=== PATIENT | female | born 1970 | race African-American/Black ===

== ENCOUNTER 2016-08-19 09:41 | Emergency (ER) | payer BC ==
[2016-08-19 09:46] VITALS: BP 128/70
[2016-08-19] MEDS ORDERED: ONDANSETRON 4 MG TAB.RAPDIS PO ONE (10:37)
--- NOTE | 2016-08-19 10:38 | ER Document Report ---
ED Medical Screen (RME) - General Chief Complaint: Dizziness Stated Complaint: DIZZY/VOMITING Mode of Arrival: Ambulatory Information source: Patient Notes: This is a 45-year-old female who presents with 2 days of nausea and vomiting and inability to tolerate po. She denies any fevers or chills. She has not had diarrhea. Her last bowel movement was yesterday morning. Last meal was yesterday"s breakfast. No known sick contacts. I have greeted and performed a rapid initial assessment of this patient. A comprehensive ED assessment and evaluation of the patient, analysis of test results and completion of the medical decision making process will be conducted by additional ED providers. TRAVEL OUTSIDE OF THE [place] IN LAST 30 DAYS: No - Related Data Allergies/Adverse Reactions: No Known Allergies Allergy (Verified 08/19/16 10:35) Past Medical History Renal/ Medical History: Denies: Hx Peritoneal Dialysis Physical Exam - Vital signs Vitals: Temp Pulse Resp BP Pulse Ox 98 F 72 18 128/70 H 99 08/19/16 09:43 08/19/16 09:43 08/19/16 09:43 08/19/16 09:43 08/19/16 09:43 Course - Vital Signs Vital signs: Temp Pulse Resp BP Pulse Ox 98.0 F 64 16 128/70 H 97 08/19/16 17:07 08/19/16 17:07 08/19/16 17:07 08/19/16 09:43 08/19/16 17:07 - Laboratory Result Diagrams: 08/19/16 10:45 08/19/16 10:45 Laboratory results interpreted by me: 08/19/16 08/19/16 08/19/16 10:45 10:45 10:45 Hgb 16.0 H Hct 48.1 H Calcium 10.5 H Urine Protein 30 H Urine Urobilinogen 4.0 H Doctor's Discharge - Discharge Clinical Impression: Vertigo, Nausea & vomiting Condition: Stable Disposition: HOME, SELF-CARE Instructions: Antinausea Medication ([facility]), Intravenous (IV) Fluids ([facility]), Meclizine ([facility]), Vertigo ([facility]), Vomiting ([facility]) Additional Instructions: Return immediately for any new or worsening symptoms Followup with your primary care provider, call tomorrow to make a followup appointment Prescriptions: Meclizine HCl [Antivert 25 mg Tablet] 25 mg PO ASDIR PRN #20 tablet PRN Reason: Ondansetron HCl [Zofran 4 mg Tablet] 1 - 2 tab PO Q6 PRN #15 tablet PRN Reason: Forms: Return to Work Referrals: [facility] [Provider Group] - Follow up as needed
[2016-08-19 11:07] LABS: ABSOLUTE EOSINOPHILS # (AUTO) 0.1 10^3/uL (0.0-0.6); ABSOLUTE LYMPHOCYTES (AUTO) 1.5 10^3/uL (0.5-4.7); ABSOLUTE MONOCYTES (AUTO) 0.3 10^3/uL (0.1-1.4); ABSOLUTE NEUT (AUTO) 4.2 10^3/uL (1.7-8.2); BASOPHILS % (AUTO) 0.7 % (0-2); EOSINOPHILS % (AUTO) 2.1 % (0-6); HEMATOCRIT 48.1 % (36.0-47.0); HGB HCT DIFFERENCE -0.1; LYMPHOCYTES % (AUTO) 24.5 % (13-45); MEAN CORPUSCULAR HEMOGLOBIN 30.5 pg (27.0-33.4); MEAN CORPUSCULAR HGB CONC 33.3 g/dL (32.0-36.0); MEAN CORPUSCULAR VOLUME 92 fl (80-97); MONOCYTES % (AUTO) 4.7 % (3-13); RED BLOOD COUNT 5.24 10^6/uL (3.72-5.28); RED CELL DISTRIBUTION WIDTH 13.5 % (11.5-14.0); WHITE BLOOD COUNT 6.2 10^3/uL (4.0-10.5)
[2016-08-19 11:18] LABS: APPEARANCE,URINE CLOUDY; BILIRUBIN,URINE NEGATIVE (NEGATIVE); GLUCOSE, URINE NEGATIVE (NEGATIVE); KETONES,URINE NEGATIVE (NEGATIVE); LEUKOCYTE ESTERASE,URINE NEGATIVE (NEGATIVE); NITRITE,URINE NEGATIVE (NEGATIVE); PROTEIN,URINE 30 mg/dL (NEGATIVE); URINE SPECIFIC GRAVITY 1.026
[2016-08-19 11:27] LABS: ALANINE AMINOTRANSFERASE 26 U/L (9-52); ALBUMIN 4.9 g/dL (3.5-5.0); ALKALINE PHOSPHATASE 82 U/L (38-126); ANION GAP 15 (5-19); ASPARTATE AMINO TRANSFERASE 19 U/L (14-36); BILIRUBIN,DIRECT 0.1 mg/dL (0.0-0.4); BLOOD UREA NITROGEN 9 mg/dL (7-20); CALCIUM 10.5 mg/dL (8.4-10.2); CARBON DIOXIDE 27 mmol/L (22-30); CHLORIDE 102 mmol/L (98-107); CREATININE RESULT 0.68 mg/dL (0.52-1.25); GLUCOSE 98 mg/dL (75-110); LIPASE 33.6 U/L (23-300); POTASSIUM 4.4 mmol/L (3.6-5.0); SODIUM 143.9 mmol/L (137-145); TOTAL PROTEIN 8.1 g/dL (6.3-8.2)
[2016-08-19] MEDS ORDERED: NORMAL SALINE 1000 ML 1,000 ML IV ONE (12:12)
[2016-08-19] MEDS ORDERED: MECLIZINE HCL 25 MG TABLET PO ONE (12:13)
[2016-08-19] MEDS ORDERED: ONDANSETRON HCL INJ/PF 4 MG/2 ML SDV IV ONE (12:13)
--- NOTE | 2016-08-19 12:15 | ER Document Report ---
ED Dizziness/Weakness - General Chief Complaint: Dizziness Stated Complaint: DIZZY/VOMITING Mode of Arrival: Ambulatory Information source: Patient Notes: Patient presents complaining of 2 day history of dizziness in which she describes as the room spinning around, nausea and vomiting. Patient states she' s vomited 3 times today. Patient denies any fever or diarrhea. 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 TRAVEL OUTSIDE OF THE [place] IN LAST 30 DAYS: No - HPI Patient complains to provider of: Vertigo Onset: Yesterday Onset/Duration: Persistent Quality of pain: No pain Pain Level: Denies Context: Vertigo Associated symptoms: Nausea, Vertigo, Vomiting. denies: Chest pain, Confused, Diarrhea, Headache, Short of breath Exacerbated by: Change in position, Movement of head Baseline gait: Walks w/o assistance - Related Data Allergies/Adverse Reactions: No Known Allergies Allergy (Verified 08/19/16 10:35) Past Medical History - General Information source: Patient - Social History Smoking Status: Current Every Day Smoker Frequency of alcohol use: Occasional Drug Abuse: None Occupation: [employer] Lives with: Alone Family History: Reviewed & Not Pertinent Renal/ Medical History: Denies: Hx Peritoneal Dialysis Psychiatric Medical History: Reports: Hx Depression Past Surgical History: Reports: Other - 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 denies: Fever EENT: Vertigo Cardiovascular: No symptoms reported. denies: Chest pain, Syncope Respiratory: No symptoms reported. denies: Cough, Short of breath Gastrointestinal: Nausea, Vomiting. denies: Abdominal pain Genitourinary: No symptoms reported Female Genitourinary: No symptoms reported Musculoskeletal: No symptoms reported Skin: No symptoms reported Hematologic/Lymphatic: No symptoms reported Neurological/Psychological: No symptoms reported. denies: Headaches Physical Exam - Vital signs Vitals: Temp Pulse Resp BP Pulse Ox 98 F 72 18 128/70 H 99 08/19/16 09:43 08/19/16 09:43 08/19/16 09:43 08/19/16 09:43 08/19/16 09:43 - General General appearance: Appears well, Alert In distress: None - HEENT Head: Normocephalic, Atraumatic Eyes: Other Extraocular movements intact: Yes Eyelashes: Normal Pupils: PERRL Ears: Normal External canal: Normal Tympanic membrane: Normal. No: Bulging, Hemotympanum, Injected, Serous effusion Nasal: Normal Mouth/Lips: Normal Mucous membranes: Normal Pharynx: Normal. No: Tonsillar hypertrophy Neck: Normal, Supple. No: Lymphadenopathy, Meningismus - Respiratory Respiratory status: No respiratory distress Chest status: Nontender Breath sounds: Normal. No: Rales, Rhonchi, Stridor, Wheezing Chest palpation: Normal - Cardiovascular Rhythm: Regular Heart sounds: S1 appreciated, S2 appreciated - Back Back: Normal, Nontender. No: CVA tenderness, Vertebra tenderness - Extremities General upper extremity: Normal inspection, Normal strength General lower extremity: Normal inspection, Normal strength - Neurological Neuro grossly intact: Yes Cognition: Normal [place] Coma Scale Eye Opening: Spontaneous Cassie Coma Scale Verbal: Oriented Cassie Coma Scale Motor: Obeys Commands Cassie Coma Scale Total: 15 - Psychological Associated symptoms: Normal affect, Normal mood - Skin Skin Temperature: Warm Skin Moisture: Dry Skin Color: Normal Course - Re-evaluation Re-evalutation: 08/19/16 14:[address] Daniel regarding presentation and exam findings, recommends ct head imaging 08/19/16 15:46 Discussed worsening signs or symptoms that patient should return immediately for. Patient verbalized understanding and agrees with plan of care. - Vital Signs Vital signs: Temp Pulse Resp BP Pulse Ox 98.0 F 64 16 128/70 H 97 08/19/16 17:07 08/19/16 17:07 08/19/16 17:07 08/19/16 09:43 08/19/16 17:07 - Laboratory Result Diagrams: 08/19/16 10:45 08/19/16 10:45 Laboratory results interpreted by me: 08/19/16 08/19/16 08/19/16 10:45 10:45 10:45 Hgb 16.0 H Hct 48.1 H Calcium 10.5 H Urine Protein 30 H Urine Urobilinogen 4.0 H 08/19/16 15:46 Labs- Entire Visit 08/19/16 08/19/16 08/19/16 10:45 10:45 10:45 WBC 6.2 RBC 5.24 Hgb 16.0 H Hct 48.1 H MCV 92 MCH 30.5 MCHC 33.3 RDW 13.5 Plt Count 257 Seg Neutrophils % 68.0 Lymphocytes % 24.5 Monocytes % 4.7 Eosinophils % 2.1 Basophils % 0.7 Absolute Neutrophils 4.2 Absolute Lymphocytes 1.5 Absolute Monocytes 0.3 Absolute Eosinophils 0.1 Absolute Basophils 0.0 Sodium 143.9 Potassium 4.4 Chloride 102 Carbon Dioxide 27 Anion Gap 15 BUN 9 Creatinine 0.68 Est GFR ( Amer) > 60 Est GFR (Non-Af Amer) > 60 Glucose 98 Calcium 10.5 H Total Bilirubin 1.0 Direct Bilirubin 0.1 Indirect Bilirubin Not Reportable Neonat Total Bilirubin Not Reportable AST 19 ALT 26 Alkaline Phosphatase 82 Total Protein 8.1 Albumin 4.9 Lipase 33.6 Urine Color YELLOW Urine Appearance CLOUDY Urine pH 8.0 Ur Specific [place] 1.026 Urine Protein 30 H Urine Glucose (UA) NEGATIVE Urine Ketones NEGATIVE Urine Blood NEGATIVE Urine Nitrite NEGATIVE Urine Bilirubin NEGATIVE Urine Urobilinogen 4.0 H Ur Leukocyte Esterase NEGATIVE Urine WBC (Auto) 2 Urine RBC (Auto) 3 Squamous Epi Cells Auto 41 Urine Mucus (Auto) FEW Urine Ascorbic Acid NEGATIVE 08/19/16 19:36 - Diagnostic Test Radiology reviewed: Reports reviewed Discharge - Discharge Clinical Impression: Vertigo Nausea & vomiting Qualifiers: Vomiting type: unspecified Vomiting Intractability: unspecified Qualified Code( s): R11.2 - Nausea with vomiting, unspecified Condition: Stable Disposition: HOME, SELF-CARE Instructions: Intravenous (IV) Fluids ([facility]), Meclizine ([facility]), Antinausea Medication ([facility]), Vertigo ([facility]), Vomiting ([facility]) Additional Instructions: Return immediately for any new or worsening symptoms Followup with your primary care provider, call tomorrow to make a followup appointment Prescriptions: Meclizine HCl [Antivert 25 mg Tablet] 25 mg PO ASDIR PRN #20 tablet PRN Reason: Ondansetron HCl [Zofran 4 mg Tablet] 1 - 2 tab PO Q6 PRN #15 tablet PRN Reason: Forms: Return to Work Referrals: [facility] [Provider Group] - Follow up as needed
--- NOTE | 2016-08-19 21:18 | EKG REPORT ---
SEVERITY:- NORMAL ECG - SINUS RHYTHM : Confirmed by: Arelis Fulton 19-Aug-2016 21:17:41
== END 2016-08-19 17:10 | disposition home or self-care (01) ==
LOC: ER 09:41
DX: R42 Dizziness and giddiness (principal); R11.2 Nausea with vomiting, unspecified; F17.200 Nicotine dependence, unspecified, uncomplicated
CPT/HCPCS: 93005; 99284; 96360; 36415; 83690; 85025; 80053; 81001; 70450; 93010; S0119; J2405; J7030